=== PATIENT | female | born 1970 | race Caucasian/White ===

== ENCOUNTER → 2017-11-24 13:09 | Outpatient (CLI) | payer OTHER, SELFPAY ==
--- NOTE | 2017-11-24 | DI.MG.S_ITS ---
BILATERAL DIGITAL SCREENING MAMMOGRAM 3D/2D WITH CAD: 11/24/2017 CLINICAL: Routine screening. Family history of breast cancer. Comparison is made to exams dated: 01/18/2015 mammogram, 07/07/2011 mammogram, and 06/10/2009 mammogram - [facility]. The tissue of both breasts is heterogeneously dense. This may lower the sensitivity of mammography. Current study was also evaluated with a Computer Aided Detection (CAD) system. There is an asymmetry in the right breast posterior depth upper region seen on the mediolateral oblique view only. There also is an asymmetry in the right breast middle depth upper region seen on the mediolateral oblique view only. No other significant masses, calcifications, or other findings are seen in either breast. IMPRESSION: INCOMPLETE: NEEDS ADDITIONAL IMAGING EVALUATION The asymmetry in the right breast posterior depth upper region seen on the mediolateral oblique view only is indeterminate. Additional views with possible ultrasound are recommended. The asymmetry in the right breast middle depth upper region seen on the mediolateral oblique view only is indeterminate. Additional views with possible ultrasound are recommended. This exam was interpreted at Station ID: [id number]. NOTE: For mammograms, a report in lay terms will be sent to the patient. Approximately 15% of breast malignancies will not be visualized mammographically. In the management of a palpable breast mass, a negative mammogram must not discourage biopsy of a clinically suspicious lesion. Electronically Signed By: Milton Guardado M.D. ecl/:11/28/2017 03:12:22 copy to: Sina Rahman letter sent: Additional Imaging Needed ACR BI-RADS Category 0: Incomplete 3340F
== END ==
PROVIDERS: Family Provider Internal Medicine; PCP Internal Medicine; Visit Provider Internal Medicine
DX: Z12.31 Encounter for screening mammogram for malignant neoplasm of breast (principal); Z80.3 Family history of malignant neoplasm of breast
CPT/HCPCS: 77063; 77067

== ENCOUNTER → 2017-12-18 12:49 | Outpatient (CLI) | payer OTHER, SELFPAY ==
--- NOTE | 2017-12-18 | DI.MG.S_ITS ---
UNILATERAL RIGHT DIGITAL DIAGNOSTIC MAMMOGRAM 3D/2D WITH ADDITIONAL VIEWS: 12/18/2017 CLINICAL: Additional evaluation requested from prior study. Comparison is made to exams dated: 11/24/2017 mammogram, 01/18/2015 mammogram, and 07/07/2011 mammogram - [facility]. The tissue of right breast is heterogeneously dense. This may lower the sensitivity of mammography. There is 0.8 cm oval equal density asymmetry with an obscured margin in the right breast at 11 o'clock posterior depth. There also is 0.9 cm oval equal density asymmetry with an obscured and circumscribed margin in the right breast posterior depth superior region seen on the mediolateral oblique view only. No other significant masses or calcifications are seen in the breast. IMPRESSION: INCOMPLETE: NEEDS ADDITIONAL IMAGING EVALUATION The 0.8 cm oval equal density asymmetry in the right breast at 11 o'clock posterior depth is indeterminate. An ultrasound is recommended. The 0.9 cm oval equal density asymmetry in the right breast posterior depth superior region seen on the mediolateral oblique view only is indeterminate. An ultrasound is recommended. This exam was interpreted at Station ID: [id number]. NOTE: For mammograms, a report in lay terms will be sent to the patient. Approximately 15% of breast malignancies will not be visualized mammographically. In the management of a palpable breast mass, a negative mammogram must not discourage biopsy of a clinically suspicious lesion. Electronically Signed By: Kt lema/chi:12/18/2017 13:46:19 copy to: Sina Rahman letter sent: Need Ultrasound ACR BI-RADS Category 0: Incomplete 3340F
--- NOTE | 2017-12-18 12:51 | DI.US.S_ITS ---
LIMITED ULTRASOUND OF RIGHT BREAST: 12/18/2017 CLINICAL: Follow up from addtional views. Comparison is made to exams dated: 12/18/2017 mammogram, 11/24/2017 mammogram, and 01/18/2015 mammogram - [facility]. Color flow and real-time ultrasound of the right breast upper aspect were performed on the areas of interest. There is a 0.5 cm x 0.6 cm x 0.6 cm cluster of oval cysts with a septated internal wall in the right breast at 10 o'clock posterior depth. This cluster of oval cysts is hypoechoic. This correlates with mammography findings. Color flow imaging demonstrates that there is no vascularity present. IMPRESSION: PROBABLY BENIGN The 0.5 cm x 0.6 cm x 0.6 cm cluster of oval cysts in the right breast is consistent with a complicated cyst and is probably benign. Follow-up mammogram and ultrasound in 6 months is recommended. There is no abnormality seen in the right breast to correspond with the mammography finding in the middle depth in the upper outer quadrant. A follow-up mammogram and an ultrasound in 6 months is recommended to demonstrate stability.(06/19/2018) This exam was interpreted at Station ID: [id number]. Electronically Signed By: Kt Nicole M.D. ddchrissy/:12/18/2017 19:04:56 copy to: Sina Rahman letter sent: Followup Recommended Ultrasound BI-RADS: 3 Probably benign
== END ==
PROVIDERS: Family Provider Internal Medicine; PCP Internal Medicine; Visit Provider Internal Medicine
DX: R92.8 Other abnormal and inconclusive findings on diagnostic imaging of breast (principal); N60.01 Solitary cyst of right breast
CPT/HCPCS: 76642; 77065; G0279

== ENCOUNTER → 2018-01-01 17:09 | Outpatient (REF) | payer OTHER, SELFPAY ==
[2018-01-01 17:45] LABS: Free T3, Triiodothyronine Free 2.85 pg/mL (2.77-5.27); Free T4, Direct Thyroxine 1.32 ng/dL (0.78-2.19)
[2018-01-01 17:59] LABS: Thyroid Stimulating Hormone 0.47 uIU/mL (0.47-4.68)
== END ==
LOC: LAB 17:09
PROVIDERS: Family Provider Internal Medicine; PCP Internal Medicine; Visit Provider Internal Medicine
DX: E03.9 Hypothyroidism, unspecified (principal)
CPT/HCPCS: 84439; 84443; 84481

== ENCOUNTER → 2019-01-18 09:09 | Outpatient (CLI) | payer SELFPAY ==
--- NOTE | 2019-01-18 | DI.MG.S_ITS ---
BILATERAL DIGITAL SCREENING MAMMOGRAM 3D/2D WITH CAD: 01/18/2019 CLINICAL: Routine screening. Family history of breast cancer. Comparison is made to exams dated: 12/18/2017 mammogram, 11/24/2017 mammogram, and 01/18/2015 mammogram - [facility]. The tissue of both breasts is heterogeneously dense. This may lower the sensitivity of mammography. Current study was also evaluated with a Computer Aided Detection (CAD) system. There is a 1.2 cm oval equal density mass in the right breast superior lateral quadrant posterior depth. This was demonstrated by prior ultrasound dated 12/18/2017 where it was previously evaluated to represent a probable cluster of cysts with recommendations to return for 6-month follow up (around the June 2018 time period). This finding appears more prominent and increased in size on today's study. No other significant masses, calcifications, or other findings are seen in either breast. IMPRESSION: INCOMPLETE: NEEDS ADDITIONAL IMAGING EVALUATION The 1.2 cm oval equal density mass in the right breast was felt to represent a cluster of cysts previously but has demonstrated interval increase size and density. It is indeterminate. A diagnostic right mammogram and ultrasound is recommended. This exam was interpreted at Station ID: [id number]. NOTE: For mammograms, a report in lay terms will be sent to the patient. Approximately 15% of breast malignancies will not be visualized mammographically. In the management of a palpable breast mass, a negative mammogram must not discourage biopsy of a clinically suspicious lesion. Electronically Signed By: Flako Heard M.D. aty/:01/19/2019 12:44:01 copy to: Sina Rahman letter sent: Additional Imaging Needed ACR BI-RADS Category 0: Incomplete 3340F
== END ==
PROVIDERS: Family Provider Internal Medicine; PCP Internal Medicine; Visit Provider Internal Medicine
DX: Z12.31 Encounter for screening mammogram for malignant neoplasm of breast (principal); Z80.3 Family history of malignant neoplasm of breast
CPT/HCPCS: 77063; 77067

== ENCOUNTER → 2019-02-18 10:05 | Outpatient (CLI) | payer SELFPAY ==
--- NOTE | 2019-02-18 | DI.US.S_ITS ---
ULTRASOUND OF RIGHT BREAST: 02/18/2019 CLINICAL: Patient returns today to evaluate a focal asymmetry in the right breast. Comparison is made to exams dated: 02/18/2019 mammogram, 01/18/2019 mammogram, 12/18/2017 ultrasound, 12/18/2017 mammogram, 11/24/2017 mammogram, and 01/18/2015 mammogram - [facility]. Color flow ultrasound of the right breast was performed on the areas of interest. Perrin scale images of the real-time examination were reviewed. There is a 1.4 cm x 0.7 cm x 1.1 cm irregular mass in the right breast at 12 o'clock posterior depth. This irregular mass is hypoechoic. This correlates with mammography findings. IMPRESSION: SUSPICIOUS OF MALIGNANCY The 1.4 cm x 0.7 cm x 1.1 cm irregular mass in the right breast is at a moderate suspicion for malignancy. An ultrasound guided biopsy is recommended. This exam was interpreted at Station ID: [id number]. SUMMARY: This was discussed with the patient by the radiologist Dr. Berman at the time of the exam. Electronically Signed By: Dayanna chapa/:02/18/2019 15:59:23 copy to: Sina Rahman letter sent: Biopsy Required Ultrasound BI-RADS: 4b Moderate suspicion of malignancy
--- NOTE | 2019-02-18 | DI.MG.S_ITS ---
UNILATERAL RIGHT DIGITAL DIAGNOSTIC MAMMOGRAM 3D/2D WITH ADDITIONAL VIEWS: 02/18/2019 CLINICAL: Additional evaluation requested from prior study. Comparison is made to exams dated: 01/18/2019 mammogram and 12/18/2017 mammogram - [facility]. The tissue of right breast is heterogeneously dense. This may lower the sensitivity of mammography. The mass in the right breast superior medial quadrant posterior depth is seen in additional views. No other significant masses or calcifications are seen in the breast. IMPRESSION: INCOMPLETE: NEEDS ADDITIONAL IMAGING EVALUATION The 1.2 cm oval equal density mass in the right breast is indeterminate. A targeted ultrasound of the right breast is recommended and will be performed immediately following this exam. This exam was interpreted at Station ID: [id number]. NOTE: For mammograms, a report in lay terms will be sent to the patient. Approximately 15% of breast malignancies will not be visualized mammographically. In the management of a palpable breast mass, a negative mammogram must not discourage biopsy of a clinically suspicious lesion. Electronically Signed By: Dayanna Yanes M.D. lk/:02/18/2019 12:11:18 copy to: Sina Rahman ACR BI-RADS Category 0: Incomplete 3340F
== END ==
PROVIDERS: PCP Internal Medicine; Visit Provider Internal Medicine
DX: R92.8 Other abnormal and inconclusive findings on diagnostic imaging of breast (principal); N63.15 Unspecified lump in the right breast, overlapping quadrants
CPT/HCPCS: 76642; 77065; G0279

== ENCOUNTER → 2019-03-17 09:05 | Outpatient (CLI) | payer OTHER, SELFPAY ==
--- NOTE | 2019-03-17 | PATH_ITS ---
[facility] Accession Number: [id number] . 01 Material submitted: . breast - RT BREAST MASS . 01 Clinical history: . RIGHT BREAST MASS . 01 Diagnosis: Right Breast Mass, Biopsy: Fibroepithelial lesion consistent with fibroadenoma. Rare microcalcification identified associated with background benign breast tissue. Negative for significant atypia and malignancy. . MRV 03/18/2019 1737 Local . 01 Comment: Initial and deeper sections are obtained and reviewed. . Clinical and radiographic correlation is necessary. . 01 Diagnosis provided by: Shon Lara MD, Pathologist NPI- [id number] . 01 Electronically signed: . Keyona Osborne MD, Pathologist NPI- [id number] . 01 Gross description: . Received one formalin-filled container labeled with the patient's name and labeled RT breast. The specimen is received with a plastic filter in container, sample loose in container and consists of multiple yellow-chung portions of tissue which range in size from less than 0.1 cm to 1.5 x 0.3 x 0.2 cm. The specimen is filtered, wrapped, and entirely submitted in one cassette. Collection date: 03/17/19. Possible collection time per container: 12:25 a.m. Total fixation time: Approximately 11 hours. ([id number]) /BIBI 03/18/2019228 Local . 01 Pathologist provided ICD-10: N60.22 . 01 CPT . 920495 Performed at: 01 [facility] [address] [place] [address] [address] [facility], [place], [place] [id number] MD Kt Palacios MD Phone: [phone]
--- NOTE | 2019-03-17 | DI.MG.S_ITS ---
UNILATERAL RIGHT DIGITAL DIAGNOSTIC MAMMOGRAM POST-NEEDLE BIOPSY: 03/17/2019 CLINICAL: Right breast mass. Post clip placement. Comparison is made to exams dated: 02/18/2019 mammogram, 01/18/2019 mammogram, and 12/18/2017 mammogram - [facility]. The tissue of right breast is heterogeneously dense. This may lower the sensitivity of mammography. There is a marker clip in the appropriate position in the right breast at 12:30 o'clock posterior depth. This marker clip placement is at the biopsy site. This correlates with the biopsy. IMPRESSION: POST PROCEDURE MAMMOGRAM FOR MARKER PLACEMENT There was a successful marker clip placement in the right breast posterior depth. This exam was interpreted at Station ID: [id number]. NOTE: For mammograms, a report in lay terms will be sent to the patient. Approximately 15% of breast malignancies will not be visualized mammographically. In the management of a palpable breast mass, a negative mammogram must not discourage biopsy of a clinically suspicious lesion. Electronically Signed By: Flako goldstein/:03/18/2019 13:02:19 copy to: Sina Rahman ACR BI-RADS Category Post-procedure mammogram for marker placement
--- NOTE | 2019-03-17 | DI.US.S_ITS ---
ULTRASOUND GUIDED BIOPSY RIGHT BREAST USING VACUUM DEVICE WITH MARKING DEVICE INSERTED AND POST MAMMOGRAPHIC IMAGIN03/17/2019 CLINICAL: Rt breast mass. PATIENT CONSENT: Risks (minor bleeding, infection, vasovagal reaction and repeat procedure), benefits and alternatives were explained to the patient and written informed consent was obtained. Correlation is made to exams dated: 03/17/2019 mammogram, 02/18/2019 ultrasound, 02/18/2019 mammogram, 01/18/2019 mammogram, 12/18/2017 ultrasound, and 12/18/2017 mammogram - [facility]. An ultrasound guided biopsy using real-time ultrasound was performed for the 1.9 cm x 0.6 cm mass located in the right breast at 12 o'clock posterior depth 8 cm from the nipple. This was described on the previous mammography and ultrasound reports. The skin was prepped in the usual manner. Local anesthetic was administered to the access site. A skin gabriel was made in the breast. The abnormality was approached from the lateral aspect. A 13 gauge biopsy needle was placed adjacent to the abnormality under ultrasound guidance. Once the needle was documented to be in the correct location, six specimens were obtained using the Mammotome biopsy system. A clip was inserted into the biopsy cavity. A sterile dressing was applied to the access site. Post procedure mammographic imaging demonstrates the location device at the targeted area. The specimens were sent to the laboratory for pathological analysis. IMPRESSION: ULTRASOUND GUIDED BIOPSY BENIGN Ultrasound guided biopsy of the 1.9 cm x 0.6 cm mass in the right breast at 12 o'clock posterior depth 8 cm from the nipple was successful. Pathology indicates benign fibroadenoma (FA). Pathology results are concordant with imaging findings. Return to annual mammogram screening schedule is recommended. This exam was interpreted at Station ID: [id number]. Flako pinedo,lk/:03/19/2019 17:12:29 copy to: Sina Rahman
== END ==
PROVIDERS: PCP Internal Medicine; Visit Provider Internal Medicine
DX: D24.1 Benign neoplasm of right breast (principal); N60.22 Fibroadenosis of left breast
CPT/HCPCS: 19083; 77065

== ENCOUNTER 2019-05-20 07:32 | Day surgery (SDC) | payer OTHER, SELFPAY ==
--- NOTE | 2019-05-20 | PATH_ITS ---
[facility] Accession Number: [id number] . 01 Material submitted: . breast - RIGHT BREAST LUMPECTOMY . 01 Diagnosis: A. Right Breast, Lumpectomy: Fibroadenoma (1.1 cm). Background breast with fibrosis/scarring as evidence of prior procedural site and rare microcalcifications. Negative for atypia, carcinoma in situ, and malignancy. MRV 05/23/2019 1009 Local . 01 Electronically signed: . Leonila Lara MD, Pathologist NPI- [id number] . 01 Gross description: . Received: In formalin, labeled right breast lumpectomy, short stitch superior, long stitch lateral. Specimen: Right partial mastectomy. Weight: 10 grams. Measurement: 1.4 cm anterior to posterior, 4.0 cm medial to lateral, and 3.0 cm superior to inferior. Skin Ellipse: Absent. Wire: Present, penetrating at the medial anteroinferior aspect and terminating within the specimen. Margins: Oriented by surgeon with short superior suture, long lateral suture, and inked as follows: posterior=black; anterior=purple; superior=blue; inferior=green; medial=yellow; lateral-orange. Sliced: Lateral to medial into eight slices. Lesions: One mass is identified. The localization wire ends within the mass and a dank-shaped biopsy marker is also identified within the mass in slice 5. Size: 1.1 x 0.9 x 0.4 cm. Slices Involved: Slices 4 through 8. Biopsy Site: Present, the one biopsy marker is identified within slice 5 adjacent to the end of the localization wire. Distance To Margins: Less than 0.1 cm from the anterior margin, 0.8 cm from the posterior margin, 0.7 cm from the superior margin, 0.5 cm from the inferior margin, less than 0.1 cm from the medial margin, and 1.5 cm from the lateral margin. Other: The remaining parenchyma is yellow, lobulated, unremarkable adipose tissue. No other nodules, masses or lesions are identified. Fixation Time: The specimen was placed in formalin on 05/20/2019 with no time given. The total fixation time is calculated to be 31 hours 30 minutes. Sections: A1: Slice 1, lateral end of specimen, perpendicular. A2: Slice 2. A3: Slice 3, tissue directly lateral to mass, no mass grossly identified. A4: Slice 4, firm area is suspected to be part of the mass and is included in the measurement. A5: Slice 5, location of biopsy marker and end of the localization wire. A6-A7: Slice 6. A8-A9: Slice 7. A10-A11: Slice 8, medial end of specimen, perpendicular. Specimen is entirely submitted. ([id number]) /MRV 05/21/2019 1535 Local . 01 Pathologist provided ICD-10: N63.10, D24.9 . 01 CPT . 155795 Performed at: 01 [facility] [address] [place] [address] [address], [place], [place] [id number] MD Kt Palacios MD Phone: [phone]
[2019-05-20 07:57] VITALS: BP 113/67; PULSE 88; RESP 18; TEMP 36.4; O2SAT 100; BMI 25.5
--- NOTE | 2019-05-20 08:08 | DI.MG.S_ITS ---
DIGITAL MAMMOGRAPHY GUIDED WIRE LOCALIZATION RIGHT BREAST- POST-NEEDLE BIOPSY: 05/20/2019 CLINICAL: Right breast cancer. Right breast wire localization. Correlation is made to exams dated: 03/17/2019 mammogram, 02/18/2019 mammogram, and 01/18/2019 mammogram - [facility]. A wire localization using digital mammography guidance was performed for the marker clip located in the right breast at 12 o'clock middle depth. The skin was prepped in the usual manner. A wire was inserted into the targeted area under digital mammography guidance. IMPRESSION: WIRE LOCALIZATION Wire localization for the marker clip in the right breast at 12 o'clock middle depth was successful. Waiting for pathology results. A final report will be issued when these become available. This exam was interpreted at Station ID: [id number]. Enrique morrow/:05/20/2019 15:20:40 copy to: Sina Rahman
--- NOTE | 2019-05-20 08:08 | DI.MG.S_ITS ---
SPECIMEN RIGHT BREAST: 05/20/2019 CLINICAL: Right breast surgical specimen. Correlation is made to exams dated: 05/20/2019 localization, 03/17/2019 mammogram, and 02/18/2019 mammogram - [facility]. A surgical specimen was imaged for the previous biopsy site located in the right breast at 12 o'clock middle depth. IMPRESSION: SPECIMEN The imaged specimen includes a biopsy clip and the distal portion of the localization wire. Waiting for pathology results. A final report will be issued when these become available. This exam was interpreted at Station ID: [id number]. Enrique morrow/:05/20/2019 15:21:57 copy to: Sina Rahman
[2019-05-20] MEDS: LACTATED RINGERS 1,000 ML 100 ML IV (09:23)
--- NOTE | 2019-05-20 09:46 | PM.PREOP ---
Pre-operative Note Interval Note History & Physical reviewed/Exam performed by Physician: Yes Changes to H&P: No
[2019-05-20] MEDS: CEFAZOLIN 2 GM/100 ML FROZ.PIGGY IV (11:43)
--- NOTE | 2019-05-20 12:06 | SUR.OPER ---
Supine on padded OR bed, head on pillow,Right arm padded and tucked at side, Left arm secured on padded armboard at < 90 angle, legs uncrossed, safety belt at thigh.
[2019-05-20] MEDS: BUPIVACAINE 0.25% (PF) VIAL 30 ML INJ (12:23)
[2019-05-20 12:35] VITALS: BP 123/67; PULSE 88; RESP 15; TEMP 36.1; O2SAT 99
[2019-05-20 12:40] VITALS: BP 121/64; PULSE 78; RESP 14; O2SAT 97
[2019-05-20 12:45] VITALS: BP 125/67; PULSE 78; RESP 8; O2SAT 97
--- NOTE | 2019-05-20 12:49 | PM.OP.1 ---
Operative Date/Time/Diagnoses Date of procedure: 05/20/19 Time of procedure: 12:49 Pre-op diagnosis: right breast mass Post-op diagnosis: same Procedure & Clinicians Procedure: needle guided lumpectomy Same procedure as scheduled: Yes Indications: symptomatic fibroadenoma Surgeon: Harjit Shaver Anesthesia Type: General Operative Notes Findings: specimen contains the wire and clip Specimen(s): other (right lumpectomy) Estimated Blood Loss (mL): 10 Procedure in detail: The patient underwent needle localized prior to the operation. They were brought to the operating room and placed supine on the table. Bilateral lower extremity compression devices were applied. They were intubated with an LMA. There were prepped and draped in sterile fashion. Time-out was performed to ensure the correct patient procedure necessary equipment within the operating room. A horizontal incision on the superior aspect of the right breast near the wire was made and subcutaneous tissues were divided. The localizing wire was identified and then brought back within the incision. The end of the wire was within a deep right mass appearance consistent with a fibroadenoma.. The mass was excised with the wire and clip. Specimen was marked short stitch superior long stitch lateral. Imaging demonstrated that the specimen contained the wire and the associated clip. Subcutaneous tissues were reapproximated with 3 0 Vicryl sutures skin closed with Monocryl followed by application of Dermabond and Steri-Strips. 0.25% bupivacaine was infiltrated into the skin. Complications: none Post-operative Condition: stable Disposition: same day surgery
[2019-05-20 13:01] VITALS: BP 117/61; PULSE 73; RESP 13; O2SAT 94
[2019-05-20 13:15] VITALS: BP 116/70; PULSE 71; RESP 15; TEMP 36.5; O2SAT 100
== END 2019-05-20 13:37 | disposition home or self-care (01) ==
PROVIDERS: PCP Internal Medicine; Referring Provider Surgery; Visit Provider Surgery
PROC: (CPT 19125; principal; 2019-05-20 10:45)
DX: D24.1 Benign neoplasm of right breast (principal); E03.9 Hypothyroidism, unspecified; E78.5 Hyperlipidemia, unspecified; F32.9 Major depressive disorder, single episode, unspecified
CPT/HCPCS: 19125; 19281; 76098; J0690; J1100; J2250; J2405; J2704; J3010

== ENCOUNTER → 2021-06-23 08:46 | Outpatient (CLI) | payer SELFPAY ==
--- NOTE | 2021-06-23 | DI.MG.S_ITS ---
BILATERAL DIGITAL SCREENING MAMMOGRAM 3D/2D WITH CAD: 06/23/2021 CLINICAL: Patient presents for routine screening. Comparison is made to exams dated: 03/17/2019 mammogram, 02/18/2019 mammogram, 01/18/2019 mammogram, 01/18/2015 mammogram, 11/24/2017 mammogram, and 05/20/2019 [facility]. The tissue of both breasts is heterogeneously dense. This may lower the sensitivity of mammography. Current study was also evaluated with a Computer Aided Detection (CAD) system. There are benign post operative findings in the right breast. No significant masses, calcifications, or other findings are seen in either breast. There has been no significant interval change. IMPRESSION: BENIGN There is no mammographic evidence of malignancy. A 1 year screening mammogram is recommended. This exam was interpreted at Station ID: [id number]. NOTE: For mammograms, a report in lay terms will be sent to the patient. Approximately 15% of breast malignancies will not be visualized mammographically. In the management of a palpable breast mass, a negative mammogram must not discourage biopsy of a clinically suspicious lesion. Electronically Signed By: Tiago wu/chi:06/23/2021 11:00:43 copy to: Sina Rahman letter sent: Normal Exam ACR BI-RADS Category 2: Benign Finding(s) 3342F
== END ==
PROVIDERS: PCP Internal Medicine; Referring Provider Internal Medicine; Visit Provider Internal Medicine
DX: Z12.31 Encounter for screening mammogram for malignant neoplasm of breast (principal)
CPT/HCPCS: 77063; 77067

== ENCOUNTER → 2021-06-28 17:49 | Outpatient (ROUT) | payer SELFPAY | PROVIDERS: Visit Provider Internal Medicine | DX: R31.21 Asymptomatic microscopic hematuria (principal) | CPT/HCPCS: 87086 ==

== ENCOUNTER → 2022-12-29 10:09 | Outpatient (CLI) | payer SELFPAY ==
--- NOTE | 2022-12-29 | DI.MG.S_ITS ---
BILATERAL DIGITAL SCREENING MAMMOGRAM 3D/2D WITH CAD: 12/29/2022 CLINICAL: Routine screening. Family history of breast cancer. Comparison is made to exams dated: 06/23/2021 mammogram, 01/18/2019 mammogram, and 11/24/2017 mammogram - [facility]. Both breasts are heterogeneously dense, which may obscure small masses (category c / 51-75% glandular tissue). Current study was also evaluated with a Computer Aided Detection (CAD) system. There is a new oval focal asymmetry in the right breast at 12 o'clock middle depth. Right breast scar marker. No other significant masses, calcifications, or other findings are seen in either breast. IMPRESSION: INCOMPLETE: NEEDS ADDITIONAL IMAGING EVALUATION The new oval focal asymmetry in the right breast is indeterminate. Additional views with possible ultrasound are recommended. Based on the Tyrer Cuzick model (a risk assessment model) the patient's lifetime risk is 9.3% and her 10 year risk is 2.7%. According to the ACR, ACS, and NCCN guidelines, an annual breast MRI exam along with mammogram is recommended if the patient's lifetime risk is 20% or greater. This exam was interpreted at Station ID: [id number]. NOTE: For mammograms, a report in lay terms will be sent to the patient. Approximately 15% of breast malignancies will not be visualized mammographically. In the management of a palpable breast mass, a negative mammogram must not discourage biopsy of a clinically suspicious lesion. Electronically Signed By: Tiago Jones M.D. slc/:12/29/2022 14:20:32 copy to: Sina Rahman letter sent: Additional Imaging Needed ACR BI-RADS Category 0: Incomplete 3340F
== END ==
PROVIDERS: PCP Internal Medicine; Referring Provider Internal Medicine; Visit Provider Internal Medicine
DX: Z12.31 Encounter for screening mammogram for malignant neoplasm of breast (principal); Z80.3 Family history of malignant neoplasm of breast; N64.89 Other specified disorders of breast
CPT/HCPCS: 77063; 77067

== ENCOUNTER → 2023-02-14 08:31 | Outpatient (CLI) | payer OTHER, MEDICAID, SELFPAY ==
--- NOTE | 2023-02-14 | DI.MG.S_ITS ---
UNILATERAL RIGHT DIGITAL DIAGNOSTIC MAMMOGRAM 3D/2D WITH ADDITIONAL VIEWS: 02/14/2023 CLINICAL: Additional evaluation requested from prior study. Comparison is made to exams dated: 06/23/2021 mammogram, 03/17/2019 mammogram, 02/18/2019 mammogram, and 01/18/2019 mammogram - [facility]. The right breast is heterogeneously dense, which may obscure small masses (category c / 51-75% glandular tissue). There is a new 1.5 cm bilobed, focal asymmetry with an indistinct and mostly circumscribed margin in the right breast at 12 o'clock middle depth. This is seen in additional views. This is lateral and anterior to a previous excision scar. No other significant masses or calcifications are seen in the breast. IMPRESSION: INCOMPLETE: NEEDS ADDITIONAL IMAGING EVALUATION The new 1.5 cm oval focal asymmetry in the right breast persists with additional views and remains indeterminate. An ultrasound is recommended. This was performed immediately following this exam. Based on the Tyrer Cuzick model (a risk assessment model) the patient's lifetime risk is 9.3% and her 10 year risk is 2.7%. According to the ACR, ACS, and NCCN guidelines, an annual breast MRI exam along with mammogram is recommended if the patient's lifetime risk is 20% or greater. This exam was interpreted at Station ID: [id number]. NOTE: For mammograms, a report in lay terms will be sent to the patient. Approximately 15% of breast malignancies will not be visualized mammographically. In the management of a palpable breast mass, a negative mammogram must not discourage biopsy of a clinically suspicious lesion. Electronically Signed By: Elizabeth navas/:02/14/2023 10:19:00 copy to: Sina Rahman ACR BI-RADS Category 0: Incomplete [id number]
--- NOTE | 2023-02-14 | DI.US.S_ITS ---
LIMITED ULTRASOUND OF RIGHT BREAST AND AXILLA: 02/14/2023 CLINICAL: Patient returns today to evaluate 2 focal asymmetries in the right breast. Comparison is made to exams dated: 02/14/2023 mammogram, 12/29/2022 mammogram, and 06/23/2021 mammogram - [facility]. Color flow ultrasound of the right breast 11-1 o'clock, and axilla regions was performed. Perrin scale images of the real-time examination were reviewed. There is a 1 cm x 0.9 cm x 1 cm irregular mass with a microlobulated margin in the right breast at 12 o'clock middle depth 9 cm from the nipple. This irregular mass is hypoechoic and heterogeneously echogenic with posterior acoustic enhancement. This correlates with mammography findings. Color flow imaging demonstrates that there is increased vascularity. No significant abnormalities were seen sonographically in the right axilla. IMPRESSION: SUSPICIOUS OF MALIGNANCY The 1 cm irregular mass in the right breast corresponds to the mammogram finding, resembles a fibroadenoma and is suspicious of malignancy. An ultrasound guided biopsy is recommended. Findings and recommendations were discussed with the patient in person by Dr. Tiago Jones at time of exam. This exam was interpreted at Station ID: [id number]. Electronically Signed By: Elizabeth navas/:02/14/2023 10:22:36 copy to: Sina Rahman letter sent: Biopsy Required Ultrasound BI-RADS: 4 Suspicious for malignancy
== END ==
PROVIDERS: PCP Internal Medicine; Referring Provider Registered Nurse; Visit Provider Registered Nurse
DX: R92.8 Other abnormal and inconclusive findings on diagnostic imaging of breast (principal); N63.15 Unspecified lump in the right breast, overlapping quadrants
CPT/HCPCS: 76642; 77065; G0279

== ENCOUNTER → 2023-02-26 14:24 | Outpatient (CLI) | payer OTHER, MEDICAID, SELFPAY ==
--- NOTE | 2023-02-26 | DI.MG.S_ITS ---
UNILATERAL RIGHT DIGITAL DIAGNOSTIC MAMMOGRAM 3D/2D POST-EXCISIONAL BIOPSY: 02/26/2023 CLINICAL: Post clip. Comparison is made to exams dated: 02/26/2023 ultrasound biopsy, 02/14/2023 ultrasound, 02/14/2023 mammogram, and 12/29/2022 mammogram - [facility]. The right breast is heterogeneously dense, which may obscure small masses (category c / 51-75% glandular tissue). There is a marker clip in the appropriate position in the right breast at 12 o'clock middle depth 9 cm from the nipple. This surgical clip is at the biopsy site. IMPRESSION: POST PROCEDURE MAMMOGRAM FOR MARKER PLACEMENT There was a successful marker clip placement in the right breast middle depth. Based on the Tyrer Cuzick model (a risk assessment model) the patient's lifetime risk is 9.3% and her 10 year risk is 2.7%. According to the ACR, ACS, and NCCN guidelines, an annual breast MRI exam along with mammogram is recommended if the patient's lifetime risk is 20% or greater. This exam was interpreted at Station ID: [id number]. NOTE: For mammograms, a report in lay terms will be sent to the patient. Approximately 15% of breast malignancies will not be visualized mammographically. In the management of a palpable breast mass, a negative mammogram must not discourage biopsy of a clinically suspicious lesion. Electronically Signed By: Juanjose farr/penrad:02/27/2023 08:14:40 copy to: Sina Rahman ACR BI-RADS Category Post-procedure mammogram for marker placement
--- NOTE | 2023-02-26 | PATH_ITS ---
[facility] Accession Number: [id number] No. of containers..01 Tissue . 01 Material submitted: . breast - RIGHT BREAST 12:00 9CMFN MASS . 01 Clinical history: . RIGHT BREAST 12:00 9CMFN MASS . 01 Diagnosis: A. 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 Negative for atypia, carcinoma in situ, and malignancy. . . COMMENT: Clinical and radiographic correlation is necessary. Dr Osborne reviewed this case and concurs with the diagnosis. MRV 02/28/2023 1737 Local . 01 Electronically signed: . Leonila Lara MD, Pathologist NPI- [id number] . 01 Gross description: . The specimen is received in formalin, labeled with the patient's name, , and US bx breast, and consists of multiple yellow to red-brown soft tissue fragments aggregating to 2.3 x 1.2 x 0.2 cm. Inked red, filtered, and submitted entirely in cassette A1. . The specimen was removed 02/26/2023 at 1527. Time in formalin not provided. Cold ischemic time cannot be calculated. Total fixation time is approximately 28 hours. ([id number]) /FRR 02/28/2023 0357 Local . 01 Microscopic: . CK5/6 and ER, in addition to deeper H/E levels are performed and examined on this case, with appropriately staining external controls. While most of the area of concern does not appear on the tissue section for IHC, the remaining fraction of it does, and shows mosaic pattern of immunoreactivity for CK5/6 and no overexpression of ER, in support of the diagnosis of usual ductal hyperplasia. . * This test was developed and its performance characteristics determined by [facility]. It has not been cleared or approved by the U.S. Food and Drug Administration. The FDA has determined that such clearance or approval is not necessary. This test is used for clinical purposes. It should not be regarded as investigational or for research. . 01 Pathologist provided ICD-10: N60.21 . 01 CPT . 106764, G52942, U49322 Performed at: 01 [facility] [address] [place] [address], [place], [place] [id number] MD Kt Palacios MD Phone: [phone]
--- NOTE | 2023-02-26 14:43 | DI.US.S_ITS ---
Patient Name: GABRIEL TELLEZ date: 1970 Sex: F Attending Physician: Neo Indications: Date: 03/08/2023 12:06 At the request of: ERIKA POLANCO Procedure: US bx breast perc w vac device ULTRASOUND GUIDED BIOPSY RIGHT BREAST USING VACUUM DEVICE: 02/26/2023 CLINICAL: Right breast mass. PATIENT CONSENT: Risks (minor bleeding, infection, vasovagal reaction and repeat procedure), benefits and alternatives were explained to the patient and written informed consent was obtained. Correlation is made to exams dated: 02/14/2023 ultrasound, 02/14/2023 mammogram, 12/29/2022 mammogram, and 06/23/2021 mammogram - [facility]. An ultrasound guided biopsy using real-time ultrasound was performed for the concerning lobulated mass located in the right breast at 12 o'clock posterior depth. The skin was prepped in the usual manner. Local anesthetic was administered to the access site. A biopsy needle was placed adjacent to the abnormality under ultrasound guidance. Once the needle was documented to be in the correct location, a specimen was obtained using a vacuum assisted device. The patient received additional local anesthetic during the procedure. The specimen was sent to the laboratory for pathological analysis. IMPRESSION: ULTRASOUND GUIDED BIOPSY BENIGN Ultrasound guided biopsy of the mass in the right breast posterior depth was successful. Pathology indicates benign finding with no atypia present. Fibroepithelial lesion consistent with fibroadenoma, focal UDH. Pathology results are concordant with imaging findings. Return to annual mammogram screening schedule is recommended. This exam was interpreted at Station ID: [id number]. Continued Report - Page 2 of 2 Patient Name: GABRIEL TELLEZ date: 1970 Sex: F Attending Physician: Neo Indications: Date: 03/08/2023 12:06 At the request of: ERIKA POLANCO Procedure: US bx breast perc w vac device Juanjose Grossman M.D. ,/:03/08/2023 12:06:18 copy to: Sina Rahman
== END ==
PROVIDERS: PCP Internal Medicine; Referring Provider Registered Nurse; Visit Provider Registered Nurse
DX: N63.15 Unspecified lump in the right breast, overlapping quadrants
CPT/HCPCS: 19083; 77065